=== PATIENT | male | born 1995 | race Two or more races ===

== ENCOUNTER 2017-04-04 04:17 | Emergency (ER) | payer BC, OTHER ==
[~2017-04-04] VITALS: Ht 172.7 cm; Wt 81.6 kg
[2017-04-04] MEDS: NEOMYCIN-BACITRACIN-POLYM UNITDOSE PKG TOP OINT TOP ONE ×2 (04:45→08:16)
[2017-04-04] MEDS ORDERED: HYDROmorphone HCL 2 MG/ML VL IV ONE (04:45)
[2017-04-04] MEDS ORDERED: SODIUM CHLORIDE 0.9% 1,000 ML IV ONE (04:45)
[2017-04-04] MEDS ORDERED: cefTRIAXone 1GM/50ML D5W 50 ML IV ONE (04:45)
[2017-04-04] MEDS ORDERED: ONDANSETRON HCL 4 MG/2 ML VIAL IV ONE (04:45)
[2017-04-04 05:12] LABS: Basophils # (auto) 0.1 uL; Basophils % (auto) 0.9 % (0.0-2.0); Eosinophils # (auto) 0.1 uL; Eosinophils % (auto) 1.9 % (0.0-7.0); Hematocrit 44.9 % (41.0-53.0); Hemoglobin 15.6 g/dL (13.5-17.5); Lymphocytes # (auto) 3.2 uL; Lymphocytes % (auto) 40.1 % (10.0-50.0); Mean Corpuscular Hemoglobin 30.3 pg (28.0-32.0); Mean Corpuscular Hgb Conc. 34.7 g/dL (32.0-36.0); Mean Corpuscular Volume 87.4 fL (80.0-100.0); Monocytes # (auto) 0.5 uL; Monocytes % (auto) 6.2 % (0.0-12.0); Neutrophils % (auto) 50.9 % (37.0-80.0); Nucleated Red Blood Cells % 0.1 %; Platelet Count (auto) 232 10^3/uL (140-450); White Blood Cell 7.9 10^3/uL (4.4-10.8)
[2017-04-04 05:25] LABS: Albumin 4.2 g/dL (3.4-5.0); BUN/Creatinine Ratio 24.7; Calcium 9.3 mg/dL (8.5-10.1); Potassium 3.4 mmol/L (3.5-5.1)
[2017-04-04 06:16] LABS: Total Protein 7.6 g/dL (6.4-8.2)
[2017-04-04] MEDS ORDERED: POTASSIUM CHL 10% (20 MEQ/15ML) 15ml ORAL SOLN PO ONE (07:00)
[2017-04-04] MEDS ORDERED: SILVER SULFADIAZINE 1 % TOPICAL CREAM 50GM TOP ONE (08:00)
[2017-04-04 08:41] VITALS: BP 118/69
== END 2017-04-04 08:44 | disposition home or self-care (01) ==
LOC: ER 04:21
DX: T23.212A Burn of second degree of left thumb (nail), initial encounter (principal); T23.132A Burn of first degree of multiple left fingers (nail), not including thumb, initial encounter; X15.2XXA Contact with hotplate, initial encounter; Y93.89 Activity, other specified; Y99.8 Other external cause status; Y92.89 Other specified places as the place of occurrence of the external cause
CPT/HCPCS: 36415; 73130; 80053; 85025; 96365; 96375; 99285; J0696; J1170; J2405; J7030

== ENCOUNTER 2017-12-21 00:15 | Emergency (ER) | payer OTHER ==
[~2017-12-21] VITALS: Ht 175.3 cm; Wt 81.6 kg
[2017-12-21] MEDS ORDERED: FAMOTIDINE (10MG/ML) 2ML VL IV ONE (04:15)
[2017-12-21] MEDS ORDERED: diphenhdrAMINE HCL 50 MG/1 ML VL IV ONE (04:15)
[2017-12-21] MEDS ORDERED: SODIUM CHLORIDE 0.9% 1,000 ML IV ONE (04:15)
[2017-12-21] MEDS ORDERED: methylPREDNISolone SOD SUCC 125 MG/2 ML VL IV ONE (04:15)
[2017-12-21] MEDS ORDERED: EPINEPHrine HCL 1 MG/1 ML AMP SC ONE (04:15)
[2017-12-21 04:35] VITALS: BP 115/81
== END 2017-12-21 05:48 | disposition home or self-care (01) ==
LOC: ER 00:22
DX: T78.40XA Allergy, unspecified, initial encounter (principal)
CPT/HCPCS: 96372; 96374; 96375; 99284; J0171; J1200; J2930; J3490

== ENCOUNTER 2022-08-27 05:58 | Emergency (ER) | payer MEDICAID, OTHER ==
[~2022-08-27] VITALS: Ht 175.3 cm; Wt 88.5 kg
[2022-08-27 07:15] VITALS: BP 167/113
== END 2022-08-27 11:21 | disposition left against medical advice (07) ==
LOC: ER 05:58
DX: F41.9 Anxiety disorder, unspecified (principal); Z53.21 Procedure and treatment not carried out due to patient leaving prior to being seen by health care provider